=== PATIENT | female | born 1960 | race Caucasian/White ===

== ENCOUNTER 2019-11-09 11:20 | Inpatient (IN) | payer OTHER ==
--- NOTE | 2019-11-09 11:40 | BHS.RME ---
Substance Use & Tx History - Substance Use History Heroin Substance amount: 1 bundle Frequency of use: Daily Substance route: Inhalation (ex: sniffing or snorting) Date of Last Use: 11/09/19 Marijuana/Hashish Substance amount: 1 blunt Frequency of use: Once a month Substance route: Smoking Date of Last Use: 10/26/19 Physical/Psych/Mental Status - Behavior General Behavior: Increased activity (restlessness, agitation) Eye Contact: Normal - Cooperativeness Cooperativeness: Cooperative - Thinking Thought Processes: Tight, Logical, Goal Directed - Physical Health Problems Is patient presently having any pain?: No Does patient presently have any injuries (include location): No Does patient currently have a fever: No Is patient : No COWS - Scale Resting Pulse: 0= [place] 80 or Below Sweatin= No chills or Flushing Restless Observation: 1= Difficult to Sit Still Pupil Size: 0= Normal to Room Light Bone or Joint Aches: 0= None Runny Nose/ Eye Tearin= None GI Upset > 30mins: 0= None Tremor Observation: 1= Tremor [place], Not Seen Yawning Observation: 0= None Anxiety or Irritability: 0= None Goose Flesh Skin: 0=Smooth Skin COWS Score: 2
--- NOTE | 2019-11-09 13:18 | HP ---
COWS - Scale Resting Pulse: 0= [place] 80 or Below Sweatin= No chills or Flushing Restless Observation: 1= Difficult to Sit Still Pupil Size: 0= Normal to Room Light Bone or Joint Aches: 0= None Runny Nose/ Eye Tearin= None GI Upset > 30mins: 0= None Tremor Observation: 1= Tremor [place], Not Seen Yawning Observation: 0= None Anxiety or Irritability: 0= None Goose Flesh Skin: 0=Smooth Skin COWS Score: 2 CIWA Score - Admission Criteria [facility] Guidelines: Admission for Medically Managed Detox: Requires at least one of the followin. CIWA greater than 12 2. Seizures within the past 24 hours 3. Delirium tremens within the past 24 hours 4. Hallucinations within the past 24 hours 5. Acute intervention needed for co occurring medical disorder 6. Acute intervention needed for co occurring psychiatric disorder 7. Severe withdrawal that cannot be handled at a lower level of care (continued vomiting, continued diarrhea, abnormal vital signs) requiring intravenous medication and/or fluids 8. Admitting History and Physical - Admission Chief Complaint: " I don't want to do this anymore, it's not fun. I want to stop using drugs" History of Present Illness: 59 year old female with history of opioid dependence. She was abstinent after being in treatment and going to [facility] 5 years ago, but then relapsed 2 years ago after her sister . Heroin: 1 bundle In, started at age 33 and last used today at 8AM. She's never overdose but also does not carry narcan. Mairjuana: 1 joint smoking once a month and last used 2 weeks ago, started smoking at the age of 13 Nicotine: Former smoker, stopped 6 months ago PMH: None Psurg: Right Arm Fracture Psych: None Lives in [place] with her . She is a [employer] but unemployed due to COVID pandemic. She has no legal issues pending. She meets criteria as she is at high risk for overdose because she carries no narcan and in addition her urine Tox shows positive FEN, THC, MTD, MOP She is at high risk for relapse and she needs insight into her disease. History Source: Patient Limitations to Obtaining History: No Limitations - Past Surgical History Additional Past Surgical History: Right Arm Fracture - Smoking History Smoking history: Former smoker Have you smoked in the past 12 months: Yes - Alcohol/Substance Use History of Substance Use: reports: Heroin, Marijuana Date of Last Use: 11/09/19 - Social History Usual Living Arrangement: Yes: With Significant Other Do you think of yourself as: Straight/Heterosexual ADL: Independent Occupation: [employer], unemployed History of Recent Travel: No Admission ROS [facility] - HPI Exam Limitations: No Limitations - Ebola screening Have you traveled outside of the country in the last 21 days: No Have you had contact with anyone from an Ebola affected area: No Have you been sick,other than usual withdrawal symptoms: No Do you have a fever: No - Review of Systems Constitutional: Chills, Diaphoresis EENT: reports: No Symptoms Reported Respiratory: reports: No Symptoms reported Cardiac: reports: No Symptoms Reported GI: reports: Nausea, Poor Appetite : reports: No Symptoms Reported Musculoskeletal: reports: No Symptoms Reported Integumentary: reports: No Symptoms Reported Neuro: reports: No Symptoms reported Endocrine: reports: No Symptoms Reported, Unexplained Weight Loss Psychiatric: reports: Judgement Intact, Orientated x3, Agitated, Anxious Other Systems: Reviewed and Negative Patient History - Patient Medical History Hx Anemia: No Hx Asthma: No Hx Chronic Obstructive Pulmonary Disease (COPD): No Hx Cancer: No Hx Cardiac Disorders: No Hx Congestive Heart Failure: No Hx Hypertension: No Hx Hypercholesterolemia: No Hx Pacemaker: No HX Cerebrovascular Accident: No Hx Seizures: No Hx Dementia: No Hx Diabetes: No Hx Gastrointestinal Disorders: No Hx Liver Disease: No Hx Genitourinary Disorders: No Hx Sexually Transmitted Disorders: No Hx Renal Disease (ESRD): No Hx Thyroid Disease: No Hx Human Immunodeficiency Virus (HIV): No Hx Hepatitis C: No Hx Depression: No Hx Suicide Attempt: No Hx Bipolar Disorder: No Hx Schizophrenia: No - Patient Surgical History Past Surgical History: No - PPD History Previous Implant?: Yes Documented Results: Negative w/o proof Implanted On Prior [facility] Admission?: No Results: negative PPD to be Administered?: Yes - Smoking Cessation Smoking history: Former smoker Have you smoked in the past 12 months: Yes Hx Chewing Tobacco Use: No Initiated information on smoking cessation: No - Substances abused Heroin Substance route: Inhalation Frequency: Daily Amount used: 1 bundle Age of first use: 33 Date of last use: 11/09/19 (8am) Marijuana/Hashish Substance route: Smoking Frequency: Daily Amount used: 1 joint Age of first use: 13 Date of last use: 10/26/19 Admission Physical Exam [facility] - Physical General Appearance: Yes: No Apparent Distress, Nourished, Appropriately Dressed, Thin, Tremorous, Irritable, Sweating, Anxious HEENTM: Yes: EOMI, Hearing grossly Normal, Normal ENT Inspection, Normocephalic, Normal Voice, BRONSON, Pharynx Normal, Tm's normal Respiratory: Yes: Chest Non-Tender, Lungs Clear, Normal Breath Sounds, No Respiratory Distress, No Accessory Muscle Use Neck: Yes: No masses,lesions,Nodules, Supple, Trachea in good position Breast: Yes: Breast Exam Deferred Cardiology: Yes: Regular Rhythm, Regular Rate, S1, S2 Abdominal: Yes: Normal Bowel Sounds, Non Tender, Flat, Soft Genitourinary: Yes: Within Normal Limits Back: Yes: Normal Inspection Musculoskeletal: Yes: full range of Motion, Gait Steady, Pelvis Stable Extremities: Yes: Normal Capillary Refill, Normal Inspection, Normal Range of Motion, Non-Tender 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: 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, Fully Oriented, Alert, Motor Strength 5/5, Normal Mood/Affect, Normal Response Integumentary: Yes: Normal Color, Warm Lymphatic: Yes: Within Normal Limits - Diagnostic (1) Alcohol dependence with withdrawal Current Visit: Yes Status: Acute (2) Cannabis use disorder, mild, abuse Current Visit: Yes Status: Acute (3) Nicotine dependence Current Visit: Yes Status: Acute Cleared for Admission [facility] - Detox or Rehab [facility] Level of Care: Medically Managed Detox Regimen/Protocol: Methadone Claeared for Rehab Admission: No Screened but not Admitted - Documentation of Visit Screened but not Admitted: No Breathalyzer - Breathalyzer Breathalyzer: 0 Inpatient Rehab Admission - Rehab Decision to Admit Inpatient rehab admission?: No
[2019-11-09] MEDS ORDERED: MENTHOL/PHENOL 1 EACH UD MM PRN (13:27)
[2019-11-09] MEDS ORDERED: METHOCARBAMOL 500 MG TABLET PO PRN (13:27)
[2019-11-09] MEDS ORDERED: MAGNESIUM HYDROX 2400MG/30ML ORAL SUSPENSION 30 ML CUP PO PRN (13:27)
[2019-11-09] MEDS ORDERED: BISMUTH SUBSALICYLATE 524 MG/30 ML UD PO PRN (13:27)
[2019-11-09] MEDS ORDERED: IBUPROFEN 400 MG TABLET (FP) PO PRN (13:27)
[2019-11-09] MEDS ORDERED: NICOTINE POLACRILEX 2 MG GUM BUC PRN (13:27)
[2019-11-09] MEDS ORDERED: MAG HYDROX/AL HYDROX/SIMETH 30 ML UNIT-DOSE CUP PO PRN (13:27)
[2019-11-09] MEDS ORDERED: ACETAMINOPHEN 325 MG TABLET (FP) PO PRN ×2 (13:27)
[2019-11-09] MEDS ORDERED: MAGNESIUM CITRATE 300 ML BOTTLE PO PRN (13:27)
[2019-11-09] MEDS ORDERED: cloNIDine HCL 0.1 MG TABLET PO PRN (13:27)
[2019-11-09 13:41] VITALS: BMI 32.9
[2019-11-09] MEDS ORDERED: hydrOXYzine PAMOATE 25 MG CAPSULE (FP) PO SCH (14:00)
[2019-11-09] MEDS ORDERED: METHADONE HCL 10 MG TABLET (FOR DETOX USE ONLY) PO ONE (14:30)
[2019-11-09] MEDS ORDERED: ONDANSETRON *ODT* 4 MG TABLET SL ONE (14:30)
[2019-11-09] MEDS ORDERED: ONDANSETRON *ODT* 4 MG TABLET SL PRN (14:48)
[2019-11-09] MEDS: PRENATAL VITAMINS W/ FOLIC ACID TABLET (FP) PO SCH (15:26)
[2019-11-09] MEDS: NICOTINE 7 MG/24 HOURS TOPICAL PATCH TD SCH (15:27)
[2019-11-09] MEDS ORDERED: PANTOPRAZOLE 40 MG TABLET PO ONE (15:45)
[2019-11-09] MEDS: THIAMINE HCL 100 MG TABLET (FP) PO SCH (22:18)
[2019-11-09] MEDS: MELATONIN 5 MG TABLETS PO SCH (22:18)
[2019-11-09] MEDS: hydrOXYzine PAMOATE 25 MG CAPSULE (FP) PO PRN (22:19)
[2019-11-09] MEDS ORDERED: TUBERCULIN PPD 5 TU/0.1ML VIAL ID ONE (22:27)
[2019-11-10] MEDS ORDERED: METHADONE HCL 10 MG TABLET (FOR DETOX USE ONLY) ONE (08:35)
[2019-11-10] MEDS ORDERED: METHADONE HCL 5 MG TABLET (FOR DETOX USE ONLY) ONE (08:35)
[2019-11-10] MEDS: PANTOPRAZOLE 40 MG TABLET PO SCH (09:27)
[2019-11-10] MEDS: PRENATAL VITAMINS W/ FOLIC ACID TABLET (FP) PO SCH (09:27)
[2019-11-10] MEDS: NICOTINE 7 MG/24 HOURS TOPICAL PATCH TD SCH (09:27)
[2019-11-10 09:44] LABS: HEMATOCRIT 37.9 % (32.4-45.2); HEMOGLOBIN 12.7 GM/dL (10.7-15.3); MCH 29.5 pg (25.7-33.7); MCHC 33.5 g/dl (32.0-36.0); MEAN CELL VOLUME 88.1 fl (80-96); MEAN PLT VOLUME 8.1 fl (7.5-11.1); PLATELET COUNT 245 K/MM3 (134-434); RDW 14.5 % (11.6-15.6); WHITE BLOOD COUNT 6.3 K/mm3 (4.0-10.0)
--- NOTE | 2019-11-10 09:51 | EKG ---
Test Reason : Blood Pressure : / mmHG Vent. Rate : 065 BPM Atrial Rate : 065 BPM P-R Int : 174 ms QRS Dur : 080 ms QT Int : 414 ms P-R-T Axes : 066 064 043 degrees QTc Int : 430 ms NORMAL SINUS RHYTHM NORMAL ECG NO PREVIOUS ECGS AVAILABLE Confirmed by LANNY BAIN MD ([id number]) on 11/10/2019 9:51:25 AM Referred By: Confirmed By:LANNY BAIN MD
[2019-11-10 09:57] LABS: POTASSIUM 4.8 mmol/L (3.5-5.1)
[2019-11-10] MEDS ORDERED: METHADONE (DETOX) 20 MG, METHADONE (DETOX) 5 MG PO ONE (10:00)
[2019-11-10 10:06] LABS: ALBUMIN 3.4 g/dl (3.4-5.0); BILIRUBIN,TOTAL 0.5 mg/dL (0.2-1); BLOOD UREA NITROGEN 16.4 mg/dL (7-18); CALCIUM 9.3 mg/dL (8.5-10.1); CREATININE 0.8 mg/dL (0.55-1.3); TOT PROT 6.5 g/dl (6.4-8.2)
[2019-11-10] MEDS ORDERED: PENICILLIN G BENZATHINE 2,400,000 UNIT/4 ML PFS IM ONE (15:16)
--- NOTE | 2019-11-10 15:29 | PN ---
[facility] Progress Note Note: pt was seen by me and pt states she was treated several times in the past with the same issue. Pt is aware of high titers. Pt was treated in the past. pt was advised that her current titer is 1:16 and its best to receive bicilin injection 2.4million x one while in our facility and to follow up with two more injections with her PCP or dept of health. However if pt goes to our rehab or a rehab then treatment will continue at either facility. pt in agreement. I realized that Dr. Ruiz ordered the treatment.
--- NOTE | 2019-11-10 15:45 | PN ---
S COWS - Scale Resting Pulse: 0= [place] 80 or Below Sweatin= No chills or Flushing Restless Observation: 1= Difficult to Sit Still Pupil Size: 1= Pupils >than Normal Bone or Joint Aches: 2= Severe Diffuse Aches Runny Nose/ Eye Tearin= Runny Nose/Eyes GI Upset > 30mins: 2= Nausea/Diarrhea Tremor Observation of Outstretched Hands: 2= Slight Tremor Visible Yawning Observation: 1= 1-2x During Session Anxiety or Irritability: 2=Irritable/Anxious Goose Flesh Skin: 0=Smooth Skin COWS Score: 13 S Progress Note (SOAP) Subjective: alert,irritable,anxious,interrupted sleep,pain in the body and back Objective: 11/10/19 15:43 Vital Signs Temperature 98.6 F 11/10/19 14:00 Pulse Rate 64 11/10/19 14:00 Respiratory Rate 18 11/10/19 14:00 Blood Pressure 105/74 11/10/19 14:00 O2 Sat by Pulse Oximetry (%) 99 11/10/19 14:00 11/10/19 15:44 Laboratory Last Values WBC 6.3 K/mm3 (4.0-10.0) 11/10/19 07:50 RBC 4.30 M/mm3 (3.60-5.2) 11/10/19 07:50 Hgb 12.7 GM/dL (10.7-15.3) 11/10/19 07:50 Hct 37.9 % (32.4-45.2) 11/10/19 07:50 MCV 88.1 fl (80-96) 11/10/19 07:50 MCH 29.5 pg (25.7-33.7) 11/10/19 07:50 MCHC 33.5 g/dl (32.0-36.0) 11/10/19 07:50 RDW 14.5 % (11.6-15.6) 11/10/19 07:50 Plt Count 245 K/MM3 (134-434) 11/10/19 07:50 MPV 8.1 fl (7.5-11.1) 11/10/19 07:50 Sodium 140 mmol/L (136-145) 11/10/19 07:50 Potassium 4.8 mmol/L (3.5-5.1) 11/10/19 07:50 Chloride 104 mmol/L (98-107) 11/10/19 07:50 Carbon Dioxide 30 mmol/L (21-32) 11/10/19 07:50 Anion Gap 6 MMOL/L (8-16) L 11/10/19 07:50 BUN 16.4 mg/dL (7-18) 11/10/19 07:50 Creatinine 0.8 mg/dL (0.55-1.3) 11/10/19 07:50 Est GFR (CKD-EPI)AfAm 92.22 11/10/19 07:50 Est GFR (CKD-EPI)NonAf 79.57 11/10/19 07:50 Random Glucose 96 mg/dL (74-106) 11/10/19 07:50 Calcium 9.3 mg/dL (8.5-10.1) 11/10/19 07:50 Total Bilirubin 0.5 mg/dL (0.2-1) 11/10/19 07:50 AST 19 U/L (15-37) 11/10/19 07:50 ALT 36 U/L (13-61) 11/10/19 07:50 Alkaline Phosphatase 96 U/L (45-117) 11/10/19 07:50 Total Protein 6.5 g/dl (6.4-8.2) 11/10/19 07:50 Albumin 3.4 g/dl (3.4-5.0) 11/10/19 07:50 POC Urine HCG, Qual Negative 11/09/19 13:39 Syphilis Serology Reactive (NONREACTIVE) A* 11/10/19 07:50 RPR Titer Reactive 1:16 (NONREACTIVE) H 11/10/19 07:50 HIV Ag/Ab Combo Qual Negative (NEGATIVE) 11/10/19 07:50 11/10/19 15:44 please refer to Lynn Merritt note about rpr positive 1:16 titre Assessment: 11/10/19 15:45 withdrawal symptom Plan: continue methadone regimen
[2019-11-10] MEDS: MELATONIN 5 MG TABLETS PO SCH (22:01)
[2019-11-10] MEDS: hydrOXYzine PAMOATE 25 MG CAPSULE (FP) PO PRN (22:01)
[2019-11-10] MEDS: THIAMINE HCL 100 MG TABLET (FP) PO SCH (22:01)
[2019-11-11] MEDS: NICOTINE 7 MG/24 HOURS TOPICAL PATCH TD SCH (09:06)
[2019-11-11] MEDS: PANTOPRAZOLE 40 MG TABLET PO SCH (09:06)
[2019-11-11] MEDS: PRENATAL VITAMINS W/ FOLIC ACID TABLET (FP) PO SCH (09:06)
--- NOTE | 2019-11-11 09:24 | PN ---
S CIWA - CIWA Score Nausea/Vomitin Muscle Tremors: 2 Anxiety: 2 Agitation: 2 Paroxysmal Sweats: No Perspiration Orientation: 0-Oriented Tacttile Disturbances: 1-Very Mild Itch/Numbness Auditory Disturbances: 0-None Visual Disturbances: 0-None Headache: 2-Mild CIWA-Ar Total Score: 11 S Progress Note (SOAP) Subjective: alert,irritable,anxious,interrupted sleep,pain in the body,nausea Objective: 11/11/19 09:20 Vital Signs Temperature 96.6 F L 11/11/19 08:35 Pulse Rate 80 11/11/19 08:35 Respiratory Rate 18 11/11/19 08:35 Blood Pressure 131/82 11/11/19 08:35 O2 Sat by Pulse Oximetry (%) 99 11/11/19 06:38 11/11/19 09:21 Laboratory Last Values WBC 6.3 K/mm3 (4.0-10.0) 11/10/19 07:50 RBC 4.30 M/mm3 (3.60-5.2) 11/10/19 07:50 Hgb 12.7 GM/dL (10.7-15.3) 11/10/19 07:50 Hct 37.9 % (32.4-45.2) 11/10/19 07:50 MCV 88.1 fl (80-96) 11/10/19 07:50 MCH 29.5 pg (25.7-33.7) 11/10/19 07:50 MCHC 33.5 g/dl (32.0-36.0) 11/10/19 07:50 RDW 14.5 % (11.6-15.6) 11/10/19 07:50 Plt Count 245 K/MM3 (134-434) 11/10/19 07:50 MPV 8.1 fl (7.5-11.1) 11/10/19 07:50 Sodium 140 mmol/L (136-145) 11/10/19 07:50 Potassium 4.8 mmol/L (3.5-5.1) 11/10/19 07:50 Chloride 104 mmol/L (98-107) 11/10/19 07:50 Carbon Dioxide 30 mmol/L (21-32) 11/10/19 07:50 Anion Gap 6 MMOL/L (8-16) L 11/10/19 07:50 BUN 16.4 mg/dL (7-18) 11/10/19 07:50 Creatinine 0.8 mg/dL (0.55-1.3) 11/10/19 07:50 Est GFR (CKD-EPI)AfAm 92.22 11/10/19 07:50 Est GFR (CKD-EPI)NonAf 79.57 11/10/19 07:50 Random Glucose 96 mg/dL (74-106) 11/10/19 07:50 Calcium 9.3 mg/dL (8.5-10.1) 11/10/19 07:50 Total Bilirubin 0.5 mg/dL (0.2-1) 11/10/19 07:50 AST 19 U/L (15-37) 11/10/19 07:50 ALT 36 U/L (13-61) 11/10/19 07:50 Alkaline Phosphatase 96 U/L (45-117) 11/10/19 07:50 Total Protein 6.5 g/dl (6.4-8.2) 11/10/19 07:50 Albumin 3.4 g/dl (3.4-5.0) 11/10/19 07:50 POC Urine HCG, Qual Negative 11/09/19 13:39 Syphilis Serology Reactive (NONREACTIVE) A* 11/10/19 07:50 RPR Titer Reactive 1:16 (NONREACTIVE) H 11/10/19 07:50 HIV Ag/Ab Combo Qual Negative (NEGATIVE) 11/10/19 07:50 11/11/19 09:21 patient decided to take bicillin la 2.4 million units im,will see her Medical provider for 2 more injection on 11/18/2019 and 11/25/2019 Assessment: 11/11/19 09:23 withdrawal symptom Plan: continue detox librium regimen
--- NOTE | 2019-11-11 09:46 | PN ---
S COWS - Scale Resting Pulse: 0= [place] 80 or Below Sweatin= No chills or Flushing Restless Observation: 1= Difficult to Sit Still Pupil Size: 1= Pupils >than Normal Bone or Joint Aches: 1= Mild Discomfort Runny Nose/ Eye Tearin= Nasal Congestion GI Upset > 30mins: 2= Nausea/Diarrhea Tremor Observation of Outstretched Hands: 2= Slight Tremor Visible Yawning Observation: 1= 1-2x During Session Anxiety or Irritability: 2=Irritable/Anxious Goose Flesh Skin: 0=Smooth Skin COWS Score: 11 S Progress Note (SOAP) Subjective: alert,irritable,anxious,interrupted sleep,pain the body and back Objective: 11/11/19 09:42 Vital Signs Temperature 96.6 F L 11/11/19 08:35 Pulse Rate 80 11/11/19 08:35 Respiratory Rate 18 11/11/19 08:35 Blood Pressure 131/82 11/11/19 08:35 O2 Sat by Pulse Oximetry (%) 99 11/11/19 06:38 Laboratory Last Values WBC 6.3 K/mm3 (4.0-10.0) 11/10/19 07:50 RBC 4.30 M/mm3 (3.60-5.2) 11/10/19 07:50 Hgb 12.7 GM/dL (10.7-15.3) 11/10/19 07:50 Hct 37.9 % (32.4-45.2) 11/10/19 07:50 MCV 88.1 fl (80-96) 11/10/19 07:50 MCH 29.5 pg (25.7-33.7) 11/10/19 07:50 MCHC 33.5 g/dl (32.0-36.0) 11/10/19 07:50 RDW 14.5 % (11.6-15.6) 11/10/19 07:50 Plt Count 245 K/MM3 (134-434) 11/10/19 07:50 MPV 8.1 fl (7.5-11.1) 11/10/19 07:50 Sodium 140 mmol/L (136-145) 11/10/19 07:50 Potassium 4.8 mmol/L (3.5-5.1) 11/10/19 07:50 Chloride 104 mmol/L (98-107) 11/10/19 07:50 Carbon Dioxide 30 mmol/L (21-32) 11/10/19 07:50 Anion Gap 6 MMOL/L (8-16) L 11/10/19 07:50 BUN 16.4 mg/dL (7-18) 11/10/19 07:50 Creatinine 0.8 mg/dL (0.55-1.3) 11/10/19 07:50 Est GFR (CKD-EPI)AfAm 92.22 11/10/19 07:50 Est GFR (CKD-EPI)NonAf 79.57 11/10/19 07:50 Random Glucose 96 mg/dL (74-106) 11/10/19 07:50 Calcium 9.3 mg/dL (8.5-10.1) 11/10/19 07:50 Total Bilirubin 0.5 mg/dL (0.2-1) 11/10/19 07:50 AST 19 U/L (15-37) 11/10/19 07:50 ALT 36 U/L (13-61) 11/10/19 07:50 Alkaline Phosphatase 96 U/L (45-117) 11/10/19 07:50 Total Protein 6.5 g/dl (6.4-8.2) 11/10/19 07:50 Albumin 3.4 g/dl (3.4-5.0) 11/10/19 07:50 POC Urine HCG, Qual Negative 11/09/19 13:39 Syphilis Serology Reactive (NONREACTIVE) A* 11/10/19 07:50 RPR Titer Reactive 1:16 (NONREACTIVE) H 11/10/19 07:50 HIV Ag/Ab Combo Qual Negative (NEGATIVE) 11/10/19 07:50 patient agreed to get Bicillin LA 2.4 million units im ,will follow with Medical provider 2 more injection 1 week apart Assessment: 11/11/19 09:44 withdrawal symptom Plan: continue detox methadone regimen,not librium regimen,please disregard note of this patient at 9.39 am
[2019-11-11] MEDS ORDERED: PENICILLIN G BENZATHINE 2,400,000 UNIT/4 ML PFS IM ONE (10:00)
[2019-11-11] MEDS ORDERED: METHADONE HCL 10 MG TABLET (FOR DETOX USE ONLY) PO ONE (10:00)
[2019-11-11] MEDS ORDERED: FLU VACCINE QUAD 60 MCG/0.5 ML (MDV 19-20) IM ONE (12:00)
[2019-11-11] MEDS: THIAMINE HCL 100 MG TABLET (FP) PO SCH (22:29)
[2019-11-11] MEDS: MELATONIN 5 MG TABLETS PO SCH (22:29)
[2019-11-12] MEDS ORDERED: METHADONE HCL 10 MG TABLET (FOR DETOX USE ONLY) ONE (09:13)
[2019-11-12] MEDS ORDERED: METHADONE HCL 5 MG TABLET (FOR DETOX USE ONLY) ONE (09:14)
[2019-11-12] MEDS ORDERED: METHADONE (DETOX) 10 MG, METHADONE (DETOX) 5 MG PO ONE (10:00)
[2019-11-12] MEDS: PRENATAL VITAMINS W/ FOLIC ACID TABLET (FP) PO SCH (10:18)
[2019-11-12] MEDS: NICOTINE 7 MG/24 HOURS TOPICAL PATCH TD SCH (10:18)
[2019-11-12] MEDS: PANTOPRAZOLE 40 MG TABLET PO SCH (10:18)
--- NOTE | 2019-11-12 11:21 | PN ---
BHS COWS - Scale Resting Pulse: 0= [place] 80 or Below Sweatin= Chills/Flushing Restless Observation: 1= Difficult to Sit Still Pupil Size: 0= Normal to Room Light Bone or Joint Aches: 2= Severe Diffuse Aches Runny Nose/ Eye Tearin= None GI Upset > 30mins: 0= None Tremor Observation of Outstretched Hands: 0= None Yawning Observation: 1= 1-2x During Session Anxiety or Irritability: 2=Irritable/Anxious Goose Flesh Skin: 0=Smooth Skin COWS Score: 7 BHS Progress Note (SOAP) Subjective: c/o anxiety, irritability, chills, and muscle aches. Objective: 11/12/19 11:19 Vital Signs 11/12/19 11/12/19 11/12/19 03:30 06:49 08:41 Temperature 98.2 F 97.7 F Pulse Rate 65 74 Respiratory 18 18 18 Rate Blood Pressure 129/76 122/82 O2 Sat by Pulse 95 Oximetry (%) Laboratory Last Values WBC 6.3 K/mm3 (4.0-10.0) 11/10/19 07:50 RBC 4.30 M/mm3 (3.60-5.2) 11/10/19 07:50 Hgb 12.7 GM/dL (10.7-15.3) 11/10/19 07:50 Hct 37.9 % (32.4-45.2) 11/10/19 07:50 MCV 88.1 fl (80-96) 11/10/19 07:50 MCH 29.5 pg (25.7-33.7) 11/10/19 07:50 MCHC 33.5 g/dl (32.0-36.0) 11/10/19 07:50 RDW 14.5 % (11.6-15.6) 11/10/19 07:50 Plt Count 245 K/MM3 (134-434) 11/10/19 07:50 MPV 8.1 fl (7.5-11.1) 11/10/19 07:50 Sodium 140 mmol/L (136-145) 11/10/19 07:50 Potassium 4.8 mmol/L (3.5-5.1) 11/10/19 07:50 Chloride 104 mmol/L (98-107) 11/10/19 07:50 Carbon Dioxide 30 mmol/L (21-32) 11/10/19 07:50 Anion Gap 6 MMOL/L (8-16) L 11/10/19 07:50 BUN 16.4 mg/dL (7-18) 11/10/19 07:50 Creatinine 0.8 mg/dL (0.55-1.3) 11/10/19 07:50 Est GFR (CKD-EPI)AfAm 92.22 11/10/19 07:50 Est GFR (CKD-EPI)NonAf 79.57 11/10/19 07:50 Random Glucose 96 mg/dL (74-106) 11/10/19 07:50 Calcium 9.3 mg/dL (8.5-10.1) 11/10/19 07:50 Total Bilirubin 0.5 mg/dL (0.2-1) 11/10/19 07:50 AST 19 U/L (15-37) 11/10/19 07:50 ALT 36 U/L (13-61) 11/10/19 07:50 Alkaline Phosphatase 96 U/L (45-117) 11/10/19 07:50 Total Protein 6.5 g/dl (6.4-8.2) 11/10/19 07:50 Albumin 3.4 g/dl (3.4-5.0) 11/10/19 07:50 POC Urine HCG, Qual Negative 11/09/19 13:39 Syphilis Serology Reactive (NONREACTIVE) A* 11/10/19 07:50 RPR Titer Reactive 1:16 (NONREACTIVE) H 11/10/19 07:50 COVID-19 ([facility]OSH) Not detected (Not Detected) 11/09/19 14:10 HIV Ag/Ab Combo Qual Negative (NEGATIVE) 11/10/19 07:50 Labs noted with negative covid-19 test result. 11/12/19 11:20 Assessment: 11/12/19 11:19 AOx3, in no acute respiratory distress. Full ROM, ambulating in the unit. Withdrawal symptoms. Negative covid-19 test result. 11/12/19 11:20 Plan: continue detox. transfer to [facility].
[2019-11-12] MEDS: THIAMINE HCL 100 MG TABLET (FP) PO SCH (22:06)
[2019-11-12] MEDS: MELATONIN 5 MG TABLETS PO SCH (22:07)
[2019-11-12] MEDS: hydrOXYzine PAMOATE 25 MG CAPSULE (FP) PO PRN (22:07)
[2019-11-13 09:11] VITALS: BP 125/84; PULSE 83; TEMP 98.1
[2019-11-13] MEDS: NICOTINE 7 MG/24 HOURS TOPICAL PATCH TD SCH (09:21)
[2019-11-13] MEDS: PANTOPRAZOLE 40 MG TABLET PO SCH (09:21)
[2019-11-13] MEDS: PRENATAL VITAMINS W/ FOLIC ACID TABLET (FP) PO SCH (09:21)
[2019-11-13] MEDS ORDERED: METHADONE HCL 10 MG TABLET (FOR DETOX USE ONLY) PO ONE (10:00)
--- NOTE | 2019-11-13 13:07 | DS ---
[facility] Detox Discharge Summary Admission Date: 11/09/19 Discharge Date: 11/13/19 - History Present History: Cannabis Dependence, Opioid Dependence Additional Comments: Pt is medically cleared and discharge today. Pt completed the detox protocol. Pt is encouraged to follow-up with and outpatient CD program and also to follow-up with her pmd concerning syphillis treatment which she verbalized understanding. Pt is alert and oriented x3 and in no acute respiratory distress. Pertinent Past History: h/o heroin and cannabis use disorder. - Physical Exam Results Vital Signs: Vital Signs Temperature 98.1 F 11/13/19 08:32 Pulse Rate 83 11/13/19 08:32 Respiratory Rate 18 11/13/19 08:32 Blood Pressure 125/84 11/13/19 08:32 O2 Sat by Pulse Oximetry (%) 98 11/13/19 05:42 Vital Signs 11/13/19 11/13/19 05:42 08:32 Temperature 97 F L 98.1 F Pulse Rate 64 83 Respiratory 18 18 Rate Blood Pressure 131/59 L 125/84 O2 Sat by Pulse 98 Oximetry (%) Laboratory Last Values WBC 6.3 K/mm3 (4.0-10.0) 11/10/19 07:50 RBC 4.30 M/mm3 (3.60-5.2) 11/10/19 07:50 Hgb 12.7 GM/dL (10.7-15.3) 11/10/19 07:50 Hct 37.9 % (32.4-45.2) 11/10/19 07:50 MCV 88.1 fl (80-96) 11/10/19 07:50 MCH 29.5 pg (25.7-33.7) 11/10/19 07:50 MCHC 33.5 g/dl (32.0-36.0) 11/10/19 07:50 RDW 14.5 % (11.6-15.6) 11/10/19 07:50 Plt Count 245 K/MM3 (134-434) 11/10/19 07:50 MPV 8.1 fl (7.5-11.1) 11/10/19 07:50 Sodium 140 mmol/L (136-145) 11/10/19 07:50 Potassium 4.8 mmol/L (3.5-5.1) 11/10/19 07:50 Chloride 104 mmol/L (98-107) 11/10/19 07:50 Carbon Dioxide 30 mmol/L (21-32) 11/10/19 07:50 Anion Gap 6 MMOL/L (8-16) L 11/10/19 07:50 BUN 16.4 mg/dL (7-18) 11/10/19 07:50 Creatinine 0.8 mg/dL (0.55-1.3) 11/10/19 07:50 Est GFR (CKD-EPI)AfAm 92.22 11/10/19 07:50 Est GFR (CKD-EPI)NonAf 79.57 11/10/19 07:50 Random Glucose 96 mg/dL (74-106) 11/10/19 07:50 Calcium 9.3 mg/dL (8.5-10.1) 11/10/19 07:50 Total Bilirubin 0.5 mg/dL (0.2-1) 11/10/19 07:50 AST 19 U/L (15-37) 11/10/19 07:50 ALT 36 U/L (13-61) 11/10/19 07:50 Alkaline Phosphatase 96 U/L (45-117) 11/10/19 07:50 Total Protein 6.5 g/dl (6.4-8.2) 11/10/19 07:50 Albumin 3.4 g/dl (3.4-5.0) 11/10/19 07:50 POC Urine HCG, Qual Negative 11/09/19 13:39 Syphilis Serology Reactive (NONREACTIVE) A* 11/10/19 07:50 RPR Titer Reactive 1:16 (NONREACTIVE) H 11/10/19 07:50 COVID-19 (JOSH) Not detected (Not Detected) 11/09/19 14:10 HIV Ag/Ab Combo Qual Negative (NEGATIVE) 11/10/19 07:50 Labs noted. Pertinent Admission Physical Exam Findings: withdrawal symptoms. - Treatment Hospital Course: Detox Protocol Followed, Detoxed Safely, Responded well, Discharged Condition Good - Medication Discharge Medications: Ambulatory Orders NK [No Known Home Medication] 11/09/19 - Diagnosis (1) Opioid use disorder Status: Chronic (2) Cannabis use disorder, mild, abuse Status: Chronic (3) History of syphilis Status: Chronic (4) Nicotine dependence Status: Acute (5) Opioid dependence with withdrawal Status: Acute - AMA Did Patient Leave Against Medical Advice: No BHS COWS - Scale Resting Pulse: 0= [place] 80 or Below Sweatin= No chills or Flushing Restless Observation: 0= Sits Still Pupil Size: 0= Normal to Room Light Bone or Joint Aches: 1= Mild Discomfort Runny Nose/ Eye Tearin= None GI Upset > 30mins: 0= None Tremor Observation of Outstretched Hands: 0= None Yawning Observation: 0= None Anxiety or Irritability: 1=Feels Anxious/Irritable Goose Flesh Skin: 0=Smooth Skin COWS Score: 2
[2019-11-14] MEDS ORDERED: METHADONE HCL 5 MG TABLET (FOR DETOX USE ONLY) PO ONE (06:00)
== END 2019-11-13 10:23 | disposition home or self-care (01) | DRG 773 ==
LOC: YASAS 11:20 → Y3E 14:00 → Y5N DETOX 11-11 16:19 → Y3N 11-12 10:54
PROVIDERS: ADMIT Allergy & Immunology; ATTEND Nurse Practitioner Family
PROC: HZ2ZZZZ Detoxification Services for Substance Abuse Treatment (ICD-10-PCS; principal; 2019-11-09)
DX: F11.23 Opioid dependence with withdrawal (principal); F12.10 Cannabis abuse, uncomplicated; F17.211 Nicotine dependence, cigarettes, in remission; Z86.19 Personal history of other infectious and parasitic diseases
CPT/HCPCS: 36415; 80053; 81025; 85027; 86593; 86780; 87389; 93005; 93010; G0008; J0735; Q0162; Q2036; U0003